=== PATIENT | female | born 1990 | race Two or more races ===

== ENCOUNTER 2022-11-13 10:46 | Outpatient (CLI) | payer MEDICAID | END 2022-11-13 23:59 | disposition home or self-care (01) | LOC: RAD 10:46 | PROVIDERS: ATTEND Student in an Organized Health Care Education/Training Program | DX: N83.202 Unspecified ovarian cyst, left side (principal); N92.6 Irregular menstruation, unspecified | CPT/HCPCS: 76830; 76856; 93976 ==